=== PATIENT | female | born 1975 | race Asian ===

== ENCOUNTER 2017-03-13 08:13 | Inpatient (IN) | payer OTHER ==
[~2017-03-13] VITALS: Ht 154.9 cm; Wt 53.6 kg
--- NOTE | ~2017-03-13 | CT71 ---
[facility] A Service of [facility] RADIOLOGY TEXT RESULTS PATIENT: OJ LEVINE LOCATION: [facility] : 71 UNIT #: [id number] AGE: [address]: Mahnaz Wilder MD SEX: F ORDER DR: [id number] [facility] [address] [place], [place] [address] [id number] MR#: [id number] #: [id number] NAME: OJ LEVINE : 1975 SEX: F STUDY DATE/TIME: 03/13/2017 9:35 UNIT: GREGG ROOM: STUDY DESCRIPTION: CT Head Wo Contrast Attending Physician: Chloe Wilkins A.P.R.N. Ordering Physician: Ed Doctor [id number] [facility] Primary Care Physician: Primary Care Physician No MEDICAL IMAGING REPORT This report is preliminary unless electronic signature is present EXAM CT head without contrast, 03/13/2017 COMPARISON None HISTORY Headaches for 3 days, nausea, vomiting and diarrhea. Severe headaches all over. TECHNIQUE This CT exam was performed with one or more of the following radiation dose reduction techniques: automatic exposure control, adjustment of mA and/or kV according to patient size, and iterative reconstruction. FINDINGS CT of the head was obtained without contrast in the axial plane as per the protocol. No acute intracranial hemorrhage, space occupying mass, mass effect, midline shift or hydrocephalus. Minimal paranasal sinus mucosal thickening is seen. Mastoid air cells are well aerated. Bones, orbits with the ocular structures do not demonstrate any significant abnormality. IMPRESSION 1. No demonstrable acute intracranial abnormality. 2. Minimal paranasal sinus mucosal thickening. Dictated by... Camilo Hardy M.D. THIS IS AN ELECTRONICALLY VERIFIED REPORT Camilo Hardy M.D. at 03/13/2017 1:14 PM CPR/jw [facility] A Service [facility] RADIOLOGY TEXT RESULTS PATIENT: OJ LEVINE LOCATION: [facility] : 71 UNIT #: [id number] AGE: [address]: Mahnaz Wilder MD SEX: F ORDER DR: TD: 03/13/2017 10:40 JOB #: [id number] MEDICAL IMAGING REPORT Page 1 of 1 COPY
--- NOTE | ~2017-03-13 | CO ---
Unit #: [id number] #: [id number] Patient: OJ LEVINE [id number] [facility] [address] [place], [place] [address] [id number] Guillermo MR#: [id number] NAME: OJ LEVINE ROOM: 337 Age: 41 Sex: F Admission Date: 03/15/2017 : 1975 Attending Physician: Dieudonne Cano Primary Care Physician: Primary Care Physician No CONSULTATION REPORT REASON FOR CONSULTATION Headaches persistent, possible viral meningitis/aseptic meningitis. PATIENT IDENTIFICATION This is a 41-year-old, right-handed, looks like female, who was evaluated in room [address] [facility]. SOURCE OF INFORMATION The patient, but more than that the records. The patient seem to be a bit confused. PROBLEM LIST Before this, she did not have any significant past medical history. HISTORY OF PRESENT ILLNESS This is a 41-year-old female, who actually was admitted on 03/13/2017. She presented to the emergency room with intense headaches. She came around 8:13 in the morning. She was evaluated and she ended up with an LP. Her presentation was headache for 3 days with nausea and vomiting. Her LP was clearly abnormal and it showed protein was elevated at 89, random glucose was 120, and I do not think it has been checked since then, and CSF glucose was 60, and she had 133 cells in tube 4, predominant lymphocytes about 85%. She continues to have headaches and the biggest concern is headaches when she gets up. She tells me that her head is exploding. She is also a bit confused. She say she is at home. Also she is complaining of some hearing problem. No seizures. No family available, but the staff does say that this is a change. She was then started on acyclovir. She is getting some Zofran. She got some morphine this morning. She was supposed to get some Imitrex, Advil, Protonix, and hydrocodone 5/325. Her head CT was okay. No prior history of meningitis and even questioning whether there is any history of migraine. No insect bites or situation like meningitis and she clearly does not have meningismus when I was examining her. PAST MEDICAL HISTORY As discussed above. Unit #: [id number] #: [id number] Patient: OJ LEVINE PAST SURGICAL HISTORY Essentially negative. FAMILY HISTORY No neurologic issues like migraine. ALLERGIES None. HOME MEDICATIONS Aspirin and sotalol. SOCIAL HISTORY The patient is . She works in [employer]. There is no tobacco, alcohol, or drug use. REVIEW OF SYSTEMS Very difficult to obtain because of her confusion, but headache is the biggest issue. CONSTITUTIONAL: Per the records, there is nothing suggesting weight issues, fever, chills, rigor, or sweats. HEENT: Headaches as discussed. NECK: No neck pain. CARDIOVASCULAR: No chest pain, clubbing, cyanosis, orthopnea, or palpitation. PULMONARY: No shortness of air, cough, or expectoration. GI: No nausea or vomiting right now. : No genitourinary symptom. EXTREMITIES: No extremity problem. BACK: No back problem. PSYCHIATRIC: No psychotic issue. NEUROLOGIC: Headache at this time. No other hematologic, dermatologic, or endocrine issues. PHYSICAL EXAMINATION VITAL SIGNS: Temperature 99.5, pulse 99, respirations 24, blood pressure 124/80. Pain was anywhere from 6 to 10 over 10. O2 saturations were 94% to 100%. This was essentially T-max. NEUROLOGIC: The patient is awake. She is alert. She can tell me her name. She is a bit confused. She thinks she is at home. She is not oriented to time, and she does follow some simple commands. Cranial examination, she respond to threats in the primary tello. Full tello are questionable because of her confusion. Eye movements seem to be conjugate. Pupils are sluggishly reactive, size about 3 mm. No ptosis. No nystagmus. Sensation on the face and scalp are normal. Strength of muscles of facial expression seemed normal and symmetric. Hearing, she has complained of decreased hearing on the left side. Tongue was midline. I could not visualize the oropharynx or uvula. Head turning was spontaneous. No signs of meningismus. On motor examination, she is moving all extremities. Strength of at least 4/5. Unit #: [id number] #: [id number] Patient: OJ LEVINE Sensory examination intact for soft touch and pain sensation. No extinction was seen. Romberg was not evaluated. Gait exam was deferred. I could not get any reflexes. Toes are equivocal. DIAGNOSTIC STUDIES LABORATORY RESULTS: Reviewed and as discussed. IMPRESSION This is a very interesting 41-year-old female with likely viral meningitis. She is having headaches and the characteristics are more of spinal headache, though she did have abnormal CSF, question about migraines being raised. Confusion which could be secondary to pain medication, but meningoencephalitis cannot be absolutely ruled out. My plan is to continue Zovirax. Get MRI of the brain without and with contrast. I will give her some steroids and Fiorinal and I may end up with requesting spinal patch and we will see how things go. First of all, decrease the sedative medication and see how things go. Discussed with the nurse and watch her closely and I will follow her based on findings that we have. We will discuss future course of action and also I believe PCR is pending. Other cultures so far did not show any organisms, so I will follow up. Dictated by... Kael Fuentes/oscar TD: 03/18/2017 02:52 JOB #: [id number] CONSULTATION REPORT Page 1 of 1 X Netta Alaniz MD CONSULTATION REPORT
--- NOTE | ~2017-03-13 | MR17 ---
[facility] A Service [facility] RADIOLOGY TEXT RESULTS PATIENT: OJ LEVINE LOCATION: [facility] : 71 UNIT #: [id number] AGE: [address]: SHIRLEY BLACKWELL V SEX: F ORDER DR: [id number] [address] [place], [place] [address] [id number] MR#: [id number] Acc #: [id number] NAME: OJ LEVINE : 1975 SEX: F STUDY DATE/TIME: 03/16/2017 14:31 UNIT: [address] ROOM: [facility] STUDY DESCRIPTION: MR Brain WWo Contrast Attending Physician: Shirley Blackwell Ordering Physician: Netta Alaniz M.D. Primary Care Physician: Primary Care Physician No MRI CENTER REPORT This report is preliminary unless electronic signature is present. EXAM MR brain INDICATIONS Headache. Meningitis. Nausea and vomiting. TECHNIQUE Multiplanar MRI of the brain with and without contrast (10 mL MultiHance IV contrast). COMPARISON CT head dated 03/13/2017. FINDINGS The midline structures and craniocervical junction are within normal limits. There is no abnormal enhancing mass or lesion following administration of contrast. There is no acute intracranial hemorrhage. No intracranial ischemia. Son-white matter differentiation is normal. The ventricles and basilar cisterns are normal in size and configuration. No extraaxial collections. Vascular flow voids are within normal limits. The orbits and paranasal sinuses are clear. IMPRESSION Negative MRI of the brain. Dictated by... David Nguyen M.D. THIS IS AN ELECTRONICALLY VERIFIED REPORT David Nguyen M.D. at 03/17/2017 8:10 AM [facility] A Service [facility] RADIOLOGY TEXT RESULTS PATIENT: OJ LEVINE LOCATION: [facility] : 71 UNIT #: [id number] AGE: [address]: SHIRLEY BLACKWELL V SEX: F ORDER DR: Kendall TD: 03/17/2017 02:00 JOB #: [id number] MRI CENTER REPORT Page 1 of 1 COPY
--- NOTE | ~2017-03-13 | HP ---
Unit #: [id number] #: [id number] Patient: OJ LEVINE [id number] [facility]. [place], [place] [address] [id number] E MR#: [id number] NAME: OJ LEVINE ROOM: Age: 41 Sex: F Admission Date: 03/13/2017 : 1975 Attending Physician: Mahnaz Wilder M.D. Primary Care Physician: No Primary Care Physician HISTORY AND PHYSICAL CHIEF COMPLAINT Headache. HISTORY OF PRESENT ILLNESS The patient is a 41-year-old female who presents to [facility] emergency department with complaint of headache. She states it has been progressive over three days associated with nausea and vomiting. She states that it is primarily in her forehead and it is made worse by light. It is also worse with standing and bending. She states that she does see flashes of light. She states that she has never had a headache like this before. PAST MEDICAL HISTORY No significant past medical history per the patient. PAST SURGICAL HISTORY None. SOCIAL HISTORY The patient denies tobacco, alcohol, illicit drug use. FAMILY HISTORY None. ALLERGIES No known drug allergies. HOME MEDICATIONS 1. Aspirin. 2. Sotalol. REVIEW OF SYSTEMS A 10-point review of systems obtained, negative except as per HPI. PHYSICAL EXAMINATION GENERAL APPEARANCE: A 41-year-old female in no acute distress, appears stated age. VITAL SIGNS: Temperature 98.1. Pulse 94. Blood pressure 126/86. HEENT: Pupils equally round. Extraocular movements intact. Mucous membranes dry. NECK: Supple. No JVD. No lymphadenopathy. CARDIAC: Regular rate and rhythm. No murmurs, gallops or rubs. LUNGS: Clear to auscultation bilaterally. ABDOMEN: Nontender, nondistended. Positive bowel sounds. Unit #: [id number] #: [id number] Patient: OJ LEVINE EXTREMITIES: No clubbing, cyanosis or edema. They are warm and dry. PSYCHIATRIC: Affect is appropriate. NEUROLOGIC: Cranial nerves II-XII intact grossly. The patient moves all extremities equally and with purpose. SKIN: No rash, bruises or ulcers. MUSCULOSKELETAL: No muscle or joint pain. No muscle or joint swelling. DIAGNOSTIC STUDIES LABORATORY: Glucose 120, otherwise, chemistries are normal. CBC is normal. Coagulation studies are normal. IMAGING: CT head without contrast shows no acute intracranial abnormality. ASSESSMENT AND PLAN 1. Headache. The patient was evaluated by the emergency room physician who was afraid the patient has meningitis. She received spinal tap and studies are pending. The patient does seem more consistent with migraine type headache to me and I have ordered a dose of Imitrex given that she has no fever or elevation in her white count. 2. Prophylaxis. The patient has been started on SCDs. Dictated by Ryan Yu M.D. ROSA/shena TD: 03/13/2017 13:59 JOB #: [id number] HISTORY AND PHYSICAL Page 1 of 1 X Ryan Yu MD X HISTORY AND PHYSICAL
[~2017-03-13 08:13] MED LIST: ASPIRIN PO; LOPRESSOR PO; Sotalol PO
[2017-03-13 09:10] LABS: BASOPHIL% 0.5 % (0-2.5); EOSINOPHIL# 0.1 X10e3 (0-0.7); EOSINOPHIL% 1.7 % (0.0-7.0); HEMOGLOBIN 12.4 gm/dL (12.0-16.0); LYMPHOCYTE# 0.8 X10e3 (1.0-3.5); LYMPHOCYTE% 14.8 % (17.0-45.0); MEAN CELL VOLUME 84.2 FL (83-96); MEAN CORPUSCULAR HEMOGLOBIN 27.6 PG (28-34); MEAN CORPUSCULAR HGB CONC 32.7 g/dL (30-36); MEAN PLATELET VOLUME 7.8 FL (6.5-11.5); MONOCYTE# 0.4 X10e3 (0-1.0); NEUTROPHIL# 4.2 X10e3 (1.5-7.1); PLATELET COUNT 173 X10e3 (140-420); RED BLOOD COUNT 4.51 X10e (3.90-5.30); RED CELL DISTRIBUTION WIDTH 14.7 % (11.0-15.5); WHITE BLOOD COUNT 5.5 X10e3 (4.0-10.5)
[2017-03-13 09:13] LABS: DIFF IND NO
[2017-03-13 09:23] LABS: PARTIAL THROMBOPLASTIN TIME 25.5 SECONDS (23.5-31.3)
[2017-03-13 09:37] LABS: ALBUMIN SERUM 4.4 g/dL (3.5-5.0); BILIRUBIN, DIRECT 0.1 mg/dL (0.0-0.2); BILIRUBIN,INDIRECT 0.6 mg/dL (0.0-0.9); BILIRUBIN,TOTAL 0.7 mg/dL (0.2-2.0); CALCIUM SERUM 8.9 mg/dL (8.4-10.2); CREATININE SERUM 0.5 mg/dL (0.6-1.4); GLOM FILT RATE Estimated 118.6 mL/min (>60); POTASSIUM 3.5 mmol/L (3.5-5.1); PROTEIN TOTAL SERUM 7.6 g/dL (6.0-8.3)
[2017-03-13] MEDS ORDERED: ASPIRIN81 M2 PO (10:45)
[2017-03-13] MEDS ORDERED: PATIENT'S PHARMACY (10:45)
[2017-03-13 12:52] LABS: GLUCOSE-CSF 60 mg/dL (50-80); PROTEIN-CSF 89 mg/dL (15-45)
[2017-03-13 13:05] LABS: CSF APPEARANCE HAZY (CLEAR); CSF LYMPHOCYTE 65 %; CSF RBC 880 CMM ([, 0]); CSF TUBE NUMBER 1; CSF WBC 62 CMM (0-8); CSF XANTHACHROMIC NO
[2017-03-13 13:06] LABS: CSF MONOCYTE 3 %; CSF NEUTROPHIL 32 %
[2017-03-13 13:17] LABS: CSF APPEARANCE CLEAR (CLEAR); CSF TUBE NUMBER 4; CSF WBC 133 CMM (0-8); CSF XANTHACHROMIC NO
[2017-03-13 13:19] LABS: CSF LYMPHOCYTE 85 %; CSF MONOCYTE 1 %; CSF NEUTROPHIL 14 %; CSF RBC 334 CMM ([, 0])
[2017-03-13] MEDS ORDERED: NO MEDICATIONS (14:57)
[2017-03-13 15:17] LABS: AMPHETAMINE NEG (NEG); BARBITURATES NEG (NEG); BENZODIAZEPINES NEG (NEG); COCAINE NEG (NEG); MARIJUANA NEG (NEG); OPIATES POS (NEG); TRICYCLIC ANTIDEPRESSANTS NEG (NEG); U METHADONE NEG (NEG)
[2017-03-16 05:08] LABS: HEMATOCRIT 36.1 % (35.0-45.0); HEMOGLOBIN 12.1 gm/dL (12.0-16.0); MEAN CELL VOLUME 84.2 FL (83-96); MEAN CORPUSCULAR HEMOGLOBIN 28.2 PG (28-34); MEAN CORPUSCULAR HGB CONC 33.5 g/dL (30-36); MEAN PLATELET VOLUME 7.8 FL (6.5-11.5); RED BLOOD COUNT 4.29 X10e (3.90-5.30); RED CELL DISTRIBUTION WIDTH 14.7 % (11.0-15.5); WHITE BLOOD COUNT 4.9 X10e3 (4.0-10.5)
[2017-03-17 06:05] LABS: HEMATOCRIT 36.4 % (35.0-45.0); HEMOGLOBIN 12.2 gm/dL (12.0-16.0); MEAN CELL VOLUME 83.1 FL (83-96); MEAN CORPUSCULAR HEMOGLOBIN 27.9 PG (28-34); MEAN CORPUSCULAR HGB CONC 33.6 g/dL (30-36); MEAN PLATELET VOLUME 8.2 FL (6.5-11.5); RED BLOOD COUNT 4.38 X10e (3.90-5.30); RED CELL DISTRIBUTION WIDTH 14.9 % (11.0-15.5)
[2017-03-17 06:55] LABS: CALCIUM SERUM 9.1 mg/dL (8.4-10.2); CREATININE SERUM 0.4 mg/dL (0.6-1.4); GLOM FILT RATE Estimated 127.6 mL/min (>60); POTASSIUM 3.8 mmol/L (3.5-5.1)
[2017-03-17] MEDS ORDERED: TYL325 PO (14:55)
[2017-03-17] MEDS ORDERED: LORTAB 5-325 M1 EACH PO (14:57)
== END 2017-03-17 16:21 | disposition home or self-care (01) | DRG 99 ==
LOC: CED 08:13 → CEDOF 12:03 → C3A PCU 12:03 → CED 14:02 → CEDOF 14:02 → C3A PCU 14:15 → CEDOF 14:15 → C3A PCU 14:15
PROVIDERS: Emergency Medicine; Internal Medicine; Nurse Practitioner
DX: G03.0 Nonpyogenic meningitis (principal); Z79.82 Long term (current) use of aspirin
CPT/HCPCS: 36415; 62270; 70450; 70553; 80048; 80076; 80307; 82945; 83605; 84157; 84703; 85025; 85027; 85610; 85730; 87070; 87205; 89051; 96361; 96365; 96368; 96375; 99285; A9577; J0133; J0696; J1100; J1170; J1200; J2270; J2405; J2765; J3030; J3370